=== PATIENT | female | born 1965 | race African-American/Black ===

== ENCOUNTER 2017-12-29 14:14 | Outpatient (CLI) | payer MEDICARE, OTHER | END 2017-12-29 14:15 | LOC: CARD 14:14 | PROVIDERS: ATTEND Internal Medicine Cardiovascular Disease | DX: R53.83 Other fatigue (principal); R00.1 Bradycardia, unspecified; I10 Essential (primary) hypertension; G47.30 Sleep apnea, unspecified | CPT/HCPCS: 36415; 84439; 84443; G0463 ==